=== PATIENT | male | born 1955 ===

== ENCOUNTER 2017-07-04 18:49 | Emergency (ER) | payer MEDICAID, OTHER ==
[2017-07-04 18:56] VITALS: BMI 31.6
[2017-07-04 19:00] VITALS: TEMP 97.6
[2017-07-04] MEDS ORDERED: Lidocaine 5% Patch TD STA (19:48)
[2017-07-04] MEDS ORDERED: Lidocaine 5% Patch TD ONE (19:55)
[2017-07-04 20:30] VITALS: BP 127/76; PULSE 67; RESP 20
[2017-07-04 20:31] VITALS: O2SAT 98
--- NOTE | 2017-07-04 20:31 | C.PDOC ---
History Of Present Illness 61 year old male presents to the ED with complaints of lower back pain beginning two days ago while moving furniture. Patient denies weakness, numbness , urinary incontinence, or other complaints at this time. Time Seen by Provider: 07/04/17 19:07 Chief Complaint (Nursing): Back Pain History Per: Patient History/Exam Limitations: no limitations Onset/Duration Of Symptoms: Days (2 days ) Current Symptoms Are (Timing): Still Present Quality Of Discomfort: "Pain" Associated Symptoms: None Recent travel outside of the [place]: No Additional History Per: Prior Records Past Medical History Reviewed: Historical Data, Nursing Documentation, Vital Signs Vital Signs: Last Vital Signs Temp 97.6 F 07/04/17 18:56 Pulse 67 07/04/17 20:30 Resp 20 07/04/17 20:30 BP 127/76 07/04/17 20:30 Pulse Ox 98 07/04/17 20:33 - Medical History PMH: Back Problems (neck pain/cervical stenosis), CAD, COPD, Hypercholesterolemia - [facility] Procedures CLOSURE SKIN & SUBCUTANEOUS NEC (10/03/14) EXCISION INTERVERT DISC (01/04/15) FUSION/REFUS OF 2-3 VERTEBRAE (01/04/15) INJECT/INFUSE NEC (06/29/13) INSERTION OF INTERBODY SPINAL FUSION DEVICE (01/04/15) INTRODUCE OF OTH THERAP SUBST INTO RESP TRACT, VIA OPENING (03/20/17) INTRODUCTION OF SERUM/TOX/VACCINE INTO MUSCLE, PERC APPROACH (03/20/17) OTH CERVICAL FUSION OF ANTERIOR COLUMN, ANTERIOR TECHNIQUE (01/04/15) TETANUS TOXOID ADMINIST (10/03/14) Family History: States: Unknown Family Hx - Social History Hx Tobacco Use: Yes Hx Alcohol Use: Yes (drinks 2 beers/day) Hx Substance Use: No - Immunization History Hx Tetanus Toxoid Vaccination: No (11 years ago) Hx Influenza Vaccination: No Hx Pneumococcal Vaccination: No Review Of Systems Constitutional: Negative for: Fever, Chills Cardiovascular: Negative for: Chest Pain Respiratory: Negative for: Shortness of Breath Gastrointestinal: Negative for: Nausea, Vomiting, Abdominal Pain Genitourinary: Negative for: Dysuria, Incontinence, Hematuria Musculoskeletal: Positive for: Back Pain Neurological: Negative for: Weakness, Numbness Physical Exam - Physical Exam Appears: Non-toxic, No Acute Distress Skin: Warm, Dry Head: Atraumatic Eye(s): bilateral: Normal Inspection, EOMI Oral Mucosa: Moist Neck: Supple Chest: Symmetrical, No Deformity Cardiovascular: Rhythm Regular, No Murmur Respiratory: Normal Breath Sounds, No Rhonchi, No Wheezing Gastrointestinal/Abdominal: Soft, No Tenderness, No Distention, No Guarding, No Rebound Back: Vertebral Tenderness (midline lumbar spine tenderness ) Extremity: Normal ROM, No Tenderness, No Pedal Edema, No Calf Tenderness, Capillary Refill (good capillary refill, less than two seconds ), No Deformity, No Swelling Neurological/Psych: Oriented x3, Normal Speech ED Course And Treatment O2 Sat by Pulse Oximetry: 98 (room air ) - Other Rad Lumbar Spine X-Ray X-Ray: Interpreted by Me, Viewed By Me Interpretation: No fractures. Moderate DJD. Progress Note: Lumbar spine X-ray was ordered. Patient was given Valium, Toradol , and Lidocaine 5% patch. Patient feels better, ambulatory in ED, requests to be d/c home.. Disposition - Disposition Referrals: [facility] [Outside] [facility] [Outside] Disposition: HOME/ ROUTINE Disposition Time: 20:32 Condition: IMPROVED Additional Instructions: Follow up with your PMD within 1-2 days. Return to Ed if feel worse. Prescriptions: Lidocaine 5% [Lidoderm] 1 patch TP DAILY #30 patch Ibuprofen [Motrin Tab] 600 mg PO Q8 #30 tab traMADol [Ultram] 50 mg PO Q6 #20 tab diaZEpam [Valium] 2 mg PO TID #15 tab Instructions: Acute Low Back Pain (ED) Forms: [facility] (Kyrgyz) Print Language: MACEDONIAN - Clinical Impression Clinical Impression: Low back pain - Scribe Statement The provider has reviewed the documentation as recorded by the Scribe Elsa Garcia All medical record entries made by the Scribe were at my direction and personally dictated by me. I have reviewed the chart and agree that the record accurately reflects my personal performance of the history, physical exam, medical decision making, and the department course for this patient. I have also personally directed, reviewed, and agree with the discharge instructions and disposition.
--- NOTE | 2017-07-05 09:46 | RAD ---
PROCEDURE: Radiographs of the Lumbar Spine. HISTORY: pain COMPARISON: None available. FINDINGS: BONES: Mild scoliosis. No listhesis. Multilevel degenerative changes including prominent osteophyte formation, in particular along the left 2nd through 4th vertebral bodies. No acute displaced fracture identified. Facet hypertrophy. DISC SPACES: Unremarkable. OTHER FINDINGS: Dense atherosclerotic calcifications of the aorta. IMPRESSION: Mild scoliosis. Extensive multilevel degenerative changes as above. No acute displaced fracture identified. Suggest further evaluation with MRI if indicated.
== END 2017-07-04 20:39 | disposition home or self-care (01) ==
LOC: C.ER 18:49
DX: M54.5 Low back pain (principal)
CPT/HCPCS: 72100; 96372; 99283; J1885

== ENCOUNTER 2018-06-22 21:50 | Emergency (ER) | payer MEDICAID, OTHER ==
[2018-06-22 21:50] VITALS: BMI 30.5
--- NOTE | 2018-06-22 22:22 | C.PDOC ---
History Of Present Illness 62 year old male presets to the ED c/o chest discomfort, palpitations that started after smoking a cigarette today. Patient denies fever, chills, chest pain, SOB, nausea, vomit, dizziness, headache, weakness, numbness. Chief Complaint (Nursing): Chest Pain History Per: Patient History/Exam Limitations: no limitations Onset/Duration Of Symptoms: Hrs Current Symptoms Are (Timing): Still Present Quality: "Pain" Recent travel outside of the [place]: No Additional History Per: Patient Past Medical History Reviewed: Historical Data, Nursing Documentation, Vital Signs Vital Signs: Last Vital Signs Temp 98.2 F 06/22/18 22:00 Pulse 119 H 06/22/18 23:00 Resp 16 06/22/18 23:00 BP 135/90 06/22/18 23:00 Pulse Ox 97 06/22/18 23:00 - Medical History PMH: Back Problems, CAD, COPD, Hypercholesterolemia Denies: Asthma, HIV, HTN, Chronic Kidney Disease Surgical History: No Surg Hx - [facility] Procedures CLOSURE SKIN & SUBCUTANEOUS NEC (10/03/14) EXCISION INTERVERT DISC (01/04/15) FUSION/REFUS OF 2-3 VERTEBRAE (01/04/15) INJECT/INFUSE NEC (06/29/13) INSERTION OF INTERBODY SPINAL FUSION DEVICE (01/04/15) INTRODUCE OF OTH THERAP SUBST INTO RESP TRACT, VIA OPENING (03/20/17) INTRODUCTION OF SERUM/TOX/VACCINE INTO MUSCLE, PERC APPROACH (03/20/17) OTH CERVICAL FUSION OF ANTERIOR COLUMN, ANTERIOR TECHNIQUE (01/04/15) TETANUS TOXOID ADMINIST (10/03/14) Family History: States: Unknown Family Hx - Social History Hx Tobacco Use: Yes Hx Alcohol Use: Yes (drinks 2 beers/day) Hx Substance Use: No - Immunization History Hx Tetanus Toxoid Vaccination: No (11 years ago) Hx Influenza Vaccination: No Hx Pneumococcal Vaccination: No Review Of Systems Constitutional: Negative for: Fever, Chills Cardiovascular: Positive for: Palpitations. Negative for: Chest Pain Respiratory: Negative for: Cough, Shortness of Breath Gastrointestinal: Negative for: Nausea, Vomiting, Abdominal Pain Neurological: Negative for: Weakness, Numbness, Headache, Dizziness Physical Exam - Physical Exam Appears: Non-toxic, Other (nervous) Skin: Normal Color, Warm, Dry Head: Atraumatic, Normacephalic Eye(s): bilateral: Normal Inspection Oral Mucosa: Moist Neck: Normal ROM, No Midline Cervical Tenderness, Supple Chest: Symmetrical Cardiovascular: Rhythm Regular Respiratory: Normal Breath Sounds, No Rales, No Rhonchi, No Wheezing Gastrointestinal/Abdominal: Soft, No Tenderness, No Guarding, No Rebound Extremity: Normal ROM, No Tenderness, No Swelling Neurological/Psych: Oriented x3, Normal Speech Gait: Steady ED Course And Treatment - Laboratory Results Result Diagrams: 06/22/18 22:20 06/22/18 22:20 ECG: Interpreted By Me, Viewed By Me ECG Rhythm: Sinus Tachycardia, ST/T Changes ECG Interpretation: No Acute Changes, Abnormal Interpretation Of ECG: Sinus tachycardia, ST-T abnormality, infero-lateral leads , presence of PVCs, no significant change from old tracings of 05/19/2017 Pulse Ox Interpretation: Normal Medical Decision Making Medical Decision Making: Plan: * EKG * Labs * CXR * Xanax 0.5 mg PO * Disposition Counseled Patient/Family Regarding: Diagnosis - Disposition Referrals: [facility] [Outside] Disposition: HOME/ ROUTINE Disposition Time: 00:59 Condition: STABLE Prescriptions: ALPRAZolam [Xanax] 0.25 mg PO BID #7 tab Instructions: Palpitations, Anxiety, Adult (DC) Forms: [facility] (Sami), Gen Discharge Inst Italian Print Language: DOMINICAN - POA Present On Arrival: None - Clinical Impression Clinical Impression: Anxiety, Palpitation - Scribe Statement The provider has reviewed the documentation as recorded by the Scribe Gabriel Rogel All medical record entries made by the Scribe were at my direction and personally dictated by me. I have reviewed the chart and agree that the record accurately reflects my personal performance of the history, physical exam, medical decision making, and the department course for this patient. I have also personally directed, reviewed, and agree with the discharge instructions and disposition.
[2018-06-22 22:29] LABS: BASO # 0.1 K/uL (0.0-0.2); BASO % 0.5 % (0.0-2.0); EOS # 0.2 K/uL (0.0-0.7); EOS % 1.8 % (0.0-4.0); HEMOGLOBIN 14.7 g/dL (12.0-18.0); LYMPH # 3.2 K/uL (1.0-4.3); MEAN CELL VOLUME 88.3 fL (80.0-94.0); MEAN CORPUSCULAR HEMOGLOBIN 29.1 pg (27.0-31.0); MEAN PLATELET VOLUME 9.7 fL (7.2-11.7); MONO # 0.7 K/uL (0.0-0.8); MONO % 7.3 % (0.0-10.0); NEUT # 5.5 K/uL (1.8-7.0); NEUT % 57.4 % (50.0-75.0); NRBC % 0.1 % (0.0-2.0); RBC 5.04 Mil/uL (4.40-5.90); RED CELL DISTRIBUTION WIDTH 14.2 % (11.5-14.5); WHITE BLOOD COUNT 9.6 K/uL (4.8-10.8)
[2018-06-22 22:46] LABS: ALB/GLOB RATIO 1.5 (1.0-2.1); ALBUMIN 4.4 g/dL (3.5-5.0); ALT/SGPT 31 U/L (21-72); AST/SGOT 17 U/L (17-59); BLOOD UREA NITROGEN 19 mg/dL (9-20); CALCIUM 9.6 mg/dl (8.6-10.4); GFR AFRICAN-AMERICAN > 60; GFR NON-AFRICAN AMERICAN > 60
[2018-06-23 00:52] LABS: BARBITURATES, UR NEGATIVE (NEGATIVE); BENZODIAZEPINES, UR NEGATIVE (NEGATIVE); OPIATES, UR NEGATIVE (NEGATIVE); PHENCYCLIDINE, UR NEGATIVE (NEGATIVE)
[2018-06-23 01:19] VITALS: BP 108/87; PULSE 76; RESP 20; TEMP 97.5; O2SAT 97
--- NOTE | 2018-06-23 11:26 | RAD ---
Date of service: 06/22/2018 HISTORY: chest pain COMPARISON: No prior. TECHNIQUE: Chest PA and lateral FINDINGS: LUNGS: No active pulmonary disease. PLEURA: No significant pleural effusion identified. No pneumothorax apparent. CARDIOVASCULAR: No radiographic findings to suggest acute or significant cardiovascular disease. OSSEOUS STRUCTURES: No significant abnormalities. VISUALIZED UPPER ABDOMEN: Normal. OTHER FINDINGS: None. IMPRESSION: No active disease.
--- NOTE | 2018-06-23 23:11 | CARD ---
APPROVED REPORT Date of service: 06/22/2018 EKG Measurement Heart [id number] <Conclusion> Sinus tachycardia with occasional premature ventricular complexes Cannot rule out Inferior infarct, age undetermined Abnormal ECG
== END 2018-06-23 01:19 | disposition home or self-care (01) ==
LOC: C.ER 21:50
DX: F41.9 Anxiety disorder, unspecified (principal); R00.2 Palpitations; F17.210 Nicotine dependence, cigarettes, uncomplicated; E78.00 Pure hypercholesterolemia, unspecified; I25.10 Atherosclerotic heart disease of native coronary artery without angina pectoris
CPT/HCPCS: 71046; 80053; 84484; 85025; 85378; 93005; 99285; G0480

== ENCOUNTER 2018-10-06 11:08 | Emergency (ER) | payer OTHER ==
[2018-10-06 11:08] VITALS: BMI 31.5
[2018-10-06 11:37] VITALS: RESP 20; O2SAT 95
[2018-10-06 11:54] LABS: BASO % 0.4 % (0.0-2.0); EOS # 0.1 K/uL (0.0-0.7); EOS % 2.1 % (0.0-4.0); HEMOGLOBIN 15.2 g/dL (12.0-18.0); LYMPH % 31.9 % (20.0-40.0); MEAN CELL VOLUME 87.2 fL (80.0-94.0); MEAN CORPUSCULAR HEMOGLOBIN 29.6 pg (27.0-31.0); MEAN CORPUSCULAR HGB CONC 33.9 g/dL (33.0-37.0); MEAN PLATELET VOLUME 9.8 fL (7.2-11.7); MONO # 0.4 K/uL (0.0-0.8); NEUT # 3.7 K/uL (1.8-7.0); NEUT % 58.6 % (50.0-75.0); NRBC % 0.1 % (0.0-2.0); RBC 5.13 Mil/uL (4.40-5.90); RED CELL DISTRIBUTION WIDTH 14.1 % (11.5-14.5); WHITE BLOOD COUNT 6.3 K/uL (4.8-10.8)
[2018-10-06 12:03] LABS: INR 1.1; PROTHROMBIN TIME 11.7 SECONDS (9.7-12.2)
[2018-10-06 12:06] LABS: ALB/GLOB RATIO 1.4 (1.0-2.1); ALBUMIN 4.4 g/dL (3.5-5.0); ALT/SGPT 20 U/L (21-72); AST/SGOT 19 U/L (17-59); BLOOD UREA NITROGEN 22 mg/dL (9-20); CALCIUM 9.2 mg/dl (8.6-10.4); GFR NON-AFRICAN AMERICAN > 60
[2018-10-06 12:12] LABS: SQUAMOUS EPITHIAL < 1 /hpf (0-5); URINE BILIRUBIN NEGATIVE (NEGATIVE); URINE BLOOD 1+ (NEGATIVE); URINE CLARITY Clear (Clear); URINE COLOR Yellow (YELLOW); URINE GLUCOSE (UA) NORMAL (Normal); URINE LEUKOCYTE ESTERASE NEG Leu/uL (Negative); URINE PROTEIN NEGATIVE (NEGATIVE)
[2018-10-06] MEDS ORDERED: Sodium Chloride 0.9% 1,000 ML IV ONE (12:22)
--- NOTE | 2018-10-06 13:16 | C.PDOC ---
History Of Present Illness 62 yo male w/o significant PMHx come in for evaluation of itchy rash gradually developed to lower legs for past week. Pt reports, rash is localized over B/L lower legs, " extremely itchy", take benadryl without significant improvement in rash. Otherwise, pt denies recent illness, headache, dizziness, visual changes, neck pain, CP, SOB, dyspnea, palpitation, diaphoresis, abd. pain, V/D, UTI sx, denies previous hx of allergy to food or medication. Ambulate to Ed for evaluation, not in any apparent distress. Time Seen by Provider: 10/06/18 11:23 Chief Complaint (Nursing): Lower Extremity Problem/Injury History Per: Patient Past Medical History Reviewed: Historical Data, Nursing Documentation, Vital Signs Vital Signs: Last Vital Signs Temp 97.7 F 10/06/18 11:36 Pulse 82 10/06/18 11:36 Resp 20 10/06/18 11:36 BP 128/82 10/06/18 11:36 Pulse Ox 95 10/06/18 11:36 - Medical History PMH: Back Problems, CAD, COPD, Hypercholesterolemia Denies: Asthma, HIV, HTN, [facility] Kid[facility] CLOS[facility] SKIN & SUBCUTANEOUS NEC (10/03/14) EXCISION INTERVERT DISC (01/04/15) FUSION/REFUS OF 2-3 VERTEBRAE (01/04/15) INJECT/INFUSE NEC (06/29/13) INSERTION OF INTERBODY SPINAL FUSION DEVICE (01/04/15) INTRODUCE OF OTH THERAP SUBST INTO RESP TRACT, VIA OPENING (03/20/17) INTRODUCTION OF SERUM/TOX/VACCINE INTO MUSCLE, PERC APPROACH (03/20/17) OTH CERVICAL FUSION OF ANTERIOR COLUMN, ANTERIOR TECHNIQUE (01/04/15) TETANUS TOXOID ADMINIST (10/03/14) Family History: States: Unknown Family Hx - Social History Hx Tobacco Use: Yes Hx Alcohol Use: Yes (drinks 2 beers/day) Hx Substance Use: No - Immunization History Hx Tetanus Toxoid Vaccination: No (11 years ago) Hx Influenza Vaccination: No Hx Pneumococcal Vaccination: No Review Of Systems Except As Marked, All Systems Reviewed And Found Negative. Constitutional: Negative for: Fever, Chills Eyes: Negative for: Vision Change ENT: Negative for: Ear Discharge, Nose Discharge, Mouth Swelling, Throat Pain, Throat Swelling Cardiovascular: Negative for: Chest Pain, Palpitations, Edema, Light Headedness Respiratory: Negative for: Cough, Shortness of Breath, Wheezing Gastrointestinal: Negative for: Nausea, Vomiting, Abdominal Pain, Diarrhea Genitourinary: Negative for: Dysuria Musculoskeletal: Negative for: Neck Pain Skin: Positive for: Rash Neurological: Negative for: Weakness, Numbness, Altered Mental Status, Headache, Dizziness Physical Exam - Physical Exam Appears: Well, Non-toxic, No Acute Distress Skin: Normal Color, Warm, Dry, Rash (scattered petechial rash to B/L lower legs. No edema, no erythema.) Head: Normacephalic Eye(s): bilateral: PERRL Ear(s): Bilateral: Normal Nose: No Flaring, No Discharge Oral Mucosa: Moist Tongue: No Swelling Lips: No Swelling Throat: No Erythema, No Drooling Neck: Normal ROM, Trachea Midline, Supple Cardiovascular: Rhythm Regular, No Murmur, No JVD, Other ((-) carotid bruits B/L) Respiratory: No Decreased Breath Sounds, No Accessory Muscle Use, No Stridor, No Wheezing Gastrointestinal/Abdominal: Soft, No Tenderness, No Distention, No Guarding Back: No CVA Tenderness Extremity: Normal ROM, No Tenderness, No Pedal Edema, No Calf Tenderness (B/L), No Deformity, No Swelling Extremity: Bilateral: Atraumatic Neurological/Psych: Oriented x3, Normal Speech, Normal Motor, Normal Sensation, Normal Reflexes ED Course And Treatment - Laboratory Results Result Diagrams: 10/06/18 11:40 10/06/18 11:40 Lab Interpretation: No Acute Changes O2 Sat by Pulse Oximetry: 95 Pulse Ox Interpretation: Normal Progress Note: Pt was OBS in ED for 2 hours and remained stable. On re-eval, pt is afebrile, hemodynamicaly stable. Ambulatory in ED with stable gait. NOn- toxic. PulseOx 95% RA. ENT: no acute findings. neck: SUpple, (-) JVD, (-) carotid bruits B/L. Lungs: CTA B/L, BS equal B/L. CVS: (+)S1S2, reg, (-) murmur. Abd: benign. Back: (-) CVA tenderness. neuorlogicaly intact. Blood work review and appaers without acute abnoramlities. case discussed with and no further testing recommend, discharge with outpt f/u recommend at this time. Pt has clinical findings c/w B/L lower legs petechial rash, nos. Pt advised and ref. to f/u with PMD in 2-3 days for re-eval. return if any new changes. Disposition Counseled Patient/Family Regarding: Studies Performed, Diagnosis, Need For Followup, Rx Given - Disposition Referrals: [facility] [Outside] Disposition: HOME/ ROUTINE Disposition Time: 13:13 Condition: STABLE Additional Instructions: Take medication as prescribe Follow up with PMD in 1-2 days for re-evaluation. return to ED if any worsening or new changes. Prescriptions: Famotidine [Pepcid] 20 mg PO BID #10 tab hydrOXYzine HCl [Atarax] 25 mg PO BID #10 tab Prednisone [Deltasone] 40 mg PO DAILY #6 tablet Instructions: Skin Rash Forms: [facility] (Hungarian) Print Language: ITALIAN - Clinical Impression Clinical Impression: Petechial rash
[2018-10-06 14:12] VITALS: BP 138/82; PULSE 70; TEMP 98.2
== END 2018-10-06 14:11 | disposition home or self-care (01) ==
LOC: C.ER 11:08
DX: R23.3 Spontaneous ecchymoses (principal); E78.00 Pure hypercholesterolemia, unspecified; I25.10 Atherosclerotic heart disease of native coronary artery without angina pectoris; J44.9 Chronic obstructive pulmonary disease, unspecified; Z72.0 Tobacco use
CPT/HCPCS: 80053; 81001; 82550; 85025; 85610; 85730; 96361; 96374; 96375; 99285; J2930; J7030

== ENCOUNTER 2018-11-24 14:45 | Emergency (ER) | payer OTHER ==
[2018-11-24 14:59] VITALS: BMI 31.6
[2018-11-24 15:03] VITALS: RESP 18; O2SAT 98
--- NOTE | 2018-11-24 16:17 | C.PDOC ---
History Of Present Illness 63-year-old male, who is otherwise well, presents to the ED for evaluation of an itchy rash to his bilateral lower extremities that has been present since September 2018. Patient was seen in the ED, and given Atarax, steroid, and Pepcid treatments without relief. Patient states he has now developed a rash to his back. He reports the areas are very itchy, often making him on able to sleep at night. Patient denies fever, chills, throat/tongue swelling, difficulty breathing, use of new soap/detergents. Time Seen by Provider: 11/24/18 15:07 Chief Complaint (Nursing): Abnormal Skin Integrity History Per: Patient History/Exam Limitations: no limitations Onset/Duration Of Symptoms: Days Current Symptoms Are (Timing): Still Present Quality Of Symptoms: Itching Additional History Per: Patient Past Medical History Reviewed: Historical Data, Nursing Documentation, Vital Signs Vital Signs: Last Vital Signs Temp 97.5 F L 11/24/18 14:59 Pulse 85 11/24/18 14:59 Resp 18 11/24/18 14:59 BP 124/89 11/24/18 14:59 Pulse Ox 98 11/24/18 14:59 - Medical History PMH: Back Problems, CAD, COPD, Hypercholesterolemia Denies: Asthma, HIV, HTN, Chronic Kidney Disease Surgical History: No Surg Hx - [facility] Procedures CLOSURE SKIN & SUBCUTANEOUS NEC (10/03/14) EXCISION INTERVERT DISC (01/04/15) FUSION/REFUS OF 2-3 VERTEBRAE (01/04/15) INJECT/INFUSE NEC (06/29/13) INSERTION OF INTERBODY SPINAL FUSION DEVICE (01/04/15) INTRODUCE OF OTH THERAP SUBST INTO RESP TRACT, VIA OPENING (03/20/17) INTRODUCTION OF SERUM/TOX/VACCINE INTO MUSCLE, PERC APPROACH (03/20/17) OTH CERVICAL FUSION OF ANTERIOR COLUMN, ANTERIOR TECHNIQUE (01/04/15) TETANUS TOXOID ADMINIST (10/03/14) Family History: States: Unknown Family Hx - Social History Hx Tobacco Use: Yes Hx Alcohol Use: No (pt denies) Hx Substance Use: No - Immunization History Hx Tetanus Toxoid Vaccination: No (11 years ago) Hx Influenza Vaccination: No Hx Pneumococcal Vaccination: No Review Of Systems Constitutional: Negative for: Fever, Chills ENT: Negative for: Mouth Swelling, Throat Swelling Skin: Positive for: Rash Physical Exam - Physical Exam Appears: Non-toxic, No Acute Distress Skin: Warm, Dry, Other (scaly, dry excoriated skin to his lower extremities bilaterally. dry papular rash to back ) Head: Atraumatic, Normacephalic Eye(s): bilateral: Normal Inspection Oral Mucosa: Moist Neck: Supple Chest: Symmetrical, No Deformity, No Tenderness Cardiovascular: Rhythm Regular, No Murmur Respiratory: Normal Breath Sounds, No Rales, No Rhonchi, No Wheezing Extremity: Normal ROM, Capillary Refill (less than 2 seconds) Neurological/Psych: Oriented x3, Normal Speech, Normal Cognition ED Course And Treatment O2 Sat by Pulse Oximetry: 98 (on RA) Pulse Ox Interpretation: Normal Medical Decision Making Medical Decision Making: Patient was given Benadryl PO, Pepcid PO, and prednisone PO. On assessment, patient is resting comfortably, showing no signs of distress, and reports improvement in his symptoms. Patient will be given treatment for eczema. Patient is advised to follow up with his PMD Within 1 to 2 days for further evaluation. He is advised to return to the ED immediately if symptoms persist or worsen. Disposition Counseled Patient/Family Regarding: Diagnosis, Need For Followup, Rx Given - Disposition Referrals: [facility] [Outside] Disposition: HOME/ ROUTINE Disposition Time: 16:14 Condition: STABLE Additional Instructions: Use Aquafore lotion twice a day. See a dermatologyst. Prescriptions: Triamcinolone 0.1% [Triamcinolone 0.1% Cream] 1 appl TP BID #1 tube Instructions: Eczema (Atopic Dermatitis) (DC) Forms: [facility] (Cambodian), Gen Discharge Inst Cambodian - POA Present On Arrival: None - Clinical Impression Clinical Impression: Eczema of lower leg, Localized pruritus - Scribe Statement The provider has reviewed the documentation as recorded by the Scribe (Roya Quach) Provider Attestation: All medical record entries made by the Scribe were at my direction and personally dictated by me. I have reviewed the chart and agree that the record accurately reflects my personal performance of the history, physical exam, medical decision making, and the department course for this patient. I have also personally directed, reviewed, and agree with the discharge instructions and disposition.
[2018-11-24 16:28] VITALS: BP 121/87; PULSE 68; TEMP 97.4
== END 2018-11-24 16:28 | disposition home or self-care (01) ==
LOC: C.ER 14:45
DX: L30.9 Dermatitis, unspecified (principal)